=== PATIENT | female | born 1935 | race Caucasian/White ===

== ENCOUNTER 2017-04-24 13:49 | Observation (INO) | payer MEDICARE ==
[2017-04-24] VITALS (8 sets, daily range): BP systolic 109–186; BP diastolic 64–81; PULSE 60–127; RESP 16–18; TEMP 97.4–98.2; O2SAT 96–100
[~2017-04-24] VITALS: Ht 170.2 cm; Wt 53.4 kg
[2017-04-24 14:03] LABS: AUTOMATED NEUTROPHIL # 6.3 TH/MM3 (1.8-7.7); BASOPHIL # 0.1 TH/MM3 (0-0.2); BASOPHIL % 0.9 % (0.0-2.0); EOSINOPHIL % 0.4 % (0.0-4.0); HEMATOCRIT 45.1 % (35.0-46.0); HEMOGLOBIN 15.1 GM/DL (11.6-15.3); LYMPH % 21.5 % (9.0-44.0); MEAN CELL VOLUME 86.7 FL (80.0-100.0); MEAN CORPUSCULAR HEMOGLOBIN 28.9 PG (27.0-34.0); MEAN CORPUSCULAR HGB CONC 33.4 % (32.0-36.0); MONO % 8.1 % (0.0-8.0); MONOCYTE # 0.7 TH/MM3 (0-0.9); NEUT % 69.1 % (16.0-70.0); PLATELET COUNT 215 TH/MM3 (150-450); RED BLOOD COUNT 5.21 MIL/MM3 (4.00-5.30); RED CELL DISTRIBUTION WIDTH 12.8 % (11.6-17.2); WHITE BLOOD COUNT 9.1 TH/MM3 (4.0-11.0)
--- NOTE | 2017-04-24 14:06 | PD ---
HPI Chief Complaint: PALPITATIONS Time Seen by Provider: 13:52 Travel History International Travel<30 days: No Contact w/Intl Traveler<30days: No Traveled to known affect area: No History of Present Illness HPI C/O HEART RACING (HAS HAD THESE ISSUES IN PAST, WHICH IS WHY SHE HAS WORN A HOLTER MONITOR, UNFORTUNATELY NO SYMPTOMS DURING THAT TIME)...PATIENT DID NOT C/ O SOB NOR ANY CHEST PAIN OR LIGHTHEADEDNESS. NO AGGRAVATING/ALLEVIATING FACTORS. PATIENT DENIES ASSOC FACTORS SUCH BARAJAS/N/V/D/CP/ABD PAIN/BACK PAIN/ SOB/POUNDING SENSATION/FEELING LIKE SHE WAS GOING TO PASS OUT. 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 WHO IS TRYING TO FIGURE OUT WHAT THESE "PALPITATIONS ARE" PFSH Social History Tobacco Use: No Allergies-Medications (Allergen,Severity, Reaction): Coded Allergies: No Known Allergies (Unverified , 04/24/17) Reported Meds & Prescriptions Reported Meds & Active Scripts Active Reported Temazepam 7.5 Mg Cap 7.5 Mg PO HS PRN Aspirin 325 Mg Tab 325 Mg PO DAILY Metoprolol Tartrate 25 Mg Tab 12.5 Mg PO BID Review of Systems Except as stated in HPI: all other systems reviewed are Neg General / Constitutional: No: Fever Eyes: No: Visual changes HENT: No: Headaches Cardiovascular: Positive: Palpitations Respiratory: No: Shortness of Breath Gastrointestinal: No: Abdominal Pain Genitourinary: No: Dysuria Musculoskeletal: No: Pain Skin: No Rash Neurologic: No: Weakness Psychiatric: No: Depression Endocrine: No: Polydipsia Hematologic/Lymphatic: No: Easy Bruising Physical Exam Narrative GENERAL: SKIN: Warm and dry. HEAD: Atraumatic. Normocephalic. EYES: Pupils equal and round. No scleral icterus. No injection or drainage. ENT: No nasal bleeding or discharge. Mucous membranes pink and moist. NECK: Trachea midline. No JVD. CARDIOVASCULAR: TACHYCARDIC RATE, IRREGULAR RHYTHM. RESPIRATORY: No accessory muscle use. Clear to auscultation. Breath sounds equal bilaterally. GASTROINTESTINAL: Abdomen soft, non-tender, nondistended. Hepatic and splenic margins not palpable. MUSCULOSKELETAL: Extremities without clubbing, cyanosis, or edema. No obvious deformities. NEUROLOGICAL: Awake and alert. No obvious cranial nerve deficits. Motor grossly within normal limits. Five out of 5 muscle strength in the arms and legs. Normal speech. PSYCHIATRIC: Appropriate mood and affect; insight and judgment normal. Data Data Last Documented VS Vital Signs Date Time Temp Pulse Resp B/P (MAP) Pulse Ox O2 Delivery O2 Flow Rate FiO2 04/24/17 15:07 64 18 122/71 (88) 100 Room Air 04/24/17 14:02 2.00 04/24/17 13:58 97.4 Orders Orders Electrocardiogram (04/24/17 13:52) B-Type Natriuretic Peptide (04/24/17 13:52) Ckmb (Isoenzyme) Profile (04/24/17 13:52) Complete Blood Count With Diff (04/24/17 13:52) Comprehensive Metabolic Panel (04/24/17 13:52) Prothrombin Time / Inr (Pt) (04/24/17 13:52) Act Partial Throm Time (Ptt) (04/24/17 13:52) Troponin I (04/24/17 13:52) Lipase (04/24/17 13:52) Chest, Single Ap (04/24/17 13:52) Ecg Monitoring (04/24/17 13:52) Bilateral Bp Monitoring (04/24/17 13:52) Iv Access Insert/Monitor (04/24/17 13:52) Oximetry (04/24/17 13:52) Oxygen Administration (04/24/17 13:52) Diltiazem Inj (Cardizem Inj) (04/24/17 14:15) Sodium Chlorid 0.9% 500 Ml Inj (Ns 500 M (04/24/17 14:15) Thyroid Stimulating Hormone (04/24/17 14:00) CKMB (04/24/17 14:00) CKMB% (04/24/17 14:00) Admit Order (Ed Use Only) (04/24/17 15:31) Enoxaparin Inj (Lovenox Inj) (04/24/17 16:00) Labs Laboratory Tests Test 04/24/17 14:00 White Blood Count 9.1 TH/MM3 Red Blood Count 5.21 MIL/MM3 Hemoglobin 15.1 GM/DL Hematocrit 45.1 % Mean Corpuscular Volume 86.7 FL Mean Corpuscular Hemoglobin 28.9 PG Mean Corpuscular Hemoglobin Concent 33.4 % Red Cell Distribution Width 12.8 % Platelet Count 215 TH/MM3 Mean Platelet Volume 8.0 FL Neutrophils (%) (Auto) 69.1 % Lymphocytes (%) (Auto) 21.5 % Monocytes (%) (Auto) 8.1 % Eosinophils (%) (Auto) 0.4 % Basophils (%) (Auto) 0.9 % Neutrophils # (Auto) 6.3 TH/MM3 Lymphocytes # (Auto) 2.0 TH/MM3 Monocytes # (Auto) 0.7 TH/MM3 Eosinophils # (Auto) 0.0 TH/MM3 Basophils # (Auto) 0.1 TH/MM3 CBC Comment DIFF FINAL Differential Comment Prothrombin Time 10.5 SEC Prothromb Time International Ratio 1.0 RATIO Activated Partial Thromboplast Time 25.8 SEC Blood Urea Nitrogen 23 MG/DL Creatinine 1.20 MG/DL Random Glucose 103 MG/DL Total Protein 8.0 GM/DL Albumin 3.8 GM/DL Calcium Level 9.0 MG/DL Alkaline Phosphatase 71 U/L Aspartate Amino Transf (AST/SGOT) 49 U/L Alanine Aminotransferase (ALT/SGPT) 29 U/L Total Bilirubin 0.4 MG/DL Sodium Level 133 MEQ/L Potassium Level 5.1 MEQ/L Chloride Level 99 MEQ/L Carbon Dioxide Level 23.2 MEQ/L Anion Gap 11 MEQ/L Estimat Glomerular Filtration Rate 43 ML/MIN Total Creatine Kinase 171 U/L Creatine Kinase MB 2.8 NG/ML Troponin I 0.09 NG/ML B-Type Natriuretic Peptide 715 PG/ML Lipase 278 U/L Thyroid Stimulating Hormone 3rd Gen 1.040 uIU/ML MDM Medical Decision Making Medical Screen Exam Complete: Yes Emergency Medical Condition: Yes Medical Record Reviewed: Yes Interpretation(s) AFIB WITH RVR, NO STEMI PATTERN Differential Diagnosis NEW ONSET AFIB RVR V NONSTEMI V STEMI V NEW ONSET CHF Narrative Course ELEVATED TROPONIN .09 WITH MILD ELEVATION OF CREATININE WELL....CXR SHOWS CARDIOMEGALY AND SOME PULM EDEMA ALONG WITH ELEV OF BNP IN 700'S SUSPICIOUS FOR CHF WHICH WOULD BE A NEW ONSET DIAGNOSIS Critical Care Narrative CRITICAL CARE NOTE: With evaluation of the patient, labs, EKG, receipt of radiologic studies, administration of medications, reevaluation the patient and discussion of the patient with the admitting physicians, the total critical care time was [45] minutes. Time to perform other separately billable procedures was not included in the critical care time. Physician Communication Physician Communication DISCUSSED CARE WITH DR HOLLEY FOR ADMISSION AND PLACED CONSULTATION WITH DR PASTRANA Diagnosis Primary Impression: New onset atrial fibrillation Additional Impressions: New onset of congestive heart failure Elevated troponin Admitting Information Admitting Physician Requests: Observation Matty Menon MD Apr 24, 2017 14:06
[2017-04-24] MEDS ORDERED: METO25TA3 PO (14:07)
[2017-04-24] MEDS ORDERED: ASPI-183 PO (14:07)
[2017-04-24] MEDS ORDERED: TEMA7.5C PO (14:08)
[2017-04-24] MEDS ORDERED: DILTIAZEM HCL 25 MG/5 ML VIAL IV ONE (14:15)
[2017-04-24] MEDS ORDERED: SODIUM CHLORID 0.9% 500 ML INJ 500 ML IV ONE (14:15)
[2017-04-24 14:18] LABS: CHLORIDE 99 MEQ/L (98-107); SODIUM (NA) 133 MEQ/L (136-145)
[2017-04-24 14:22] LABS: ALBUMIN 3.8 GM/DL (3.4-5.0); BICARBONATE 23.2 MEQ/L (21.0-32.0); BLOOD UREA NITROGEN 23 MG/DL (7-18); GLUCOSE,RANDOM 103 MG/DL (74-106); LIPASE 278 U/L (73-393); PROTHROMBIN TIME - PATIENT 10.5 SEC (9.8-11.6)
[2017-04-24 14:25] LABS: ALT (GPT) 29 U/L (10-53); AST (GOT) 49 U/L (15-37); GLOMERULAR FILTRATION RATE 43 ML/MIN (>89)
[2017-04-24 14:26] LABS: TOTAL BILIRUBIN ADULT 0.4 MG/DL (0.2-1.0)
[2017-04-24 14:28] LABS: ALKALINE PHOSPHATASE 71 U/L (45-117)
[2017-04-24 14:30] LABS: TROPONIN I 0.09 NG/ML (0.02-0.05)
--- NOTE | 2017-04-24 14:43 | RADRPT ---
EXAM DATE/TIME: 04/24/2017 14:31 [facility] COMPARISON: No previous studies available for comparison. INDICATIONS : Rapid heart rate, short of breath MEDICAL HISTORY : None. SURGICAL HISTORY : None. ENCOUNTER: Initial ACUITY: 1 week PAIN SCORE: 0/10 LOCATION: Bilateral cranial FINDINGS: A single view of the chest demonstrates the lungs to be symmetrically aerated without evidence of mas s, infiltrate or effusion. There is hyperaeration of both lung hernandez. The heart size is moderately e nlarged.. Osseous structures are intact. CONCLUSION: 1. No acute intrathoracic disease. 2. Moderate compensated cardiomegaly. Martin Meyers MD on April 24, 2017 at 14:40 Board Certified Radiologist. This report was verified electronically.
[2017-04-24] MEDS ORDERED: ENOXAPARIN SODIUM 60 MG/0.6 ML SYRINGE SQ ONE (16:00)
[2017-04-24] MEDS ORDERED: TEMAZEPAM 15 MG CAP PO PRN (18:00)
[2017-04-24] MEDS ORDERED: ACETAMINOPHEN 500 MG CPLT PO PRN (18:00)
[2017-04-24] MEDS ORDERED: SODIUM CHLORIDE 0.9% FLUSH 10 ML FLUSH IV FLUSH PRN (18:00)
--- NOTE | 2017-04-24 18:34 | MH ---
cc: RASHIDA GUPTA M.D. DATE OF ADMISSION 04/24/2017 ADMISSION DIAGNOSIS Atrial fibrillation with rapid ventricular response, elevated troponin. HISTORY OF PRESENT ILLNESS Ms. Marquez is a very pleasant 82-year-old female who has a several year history of intermittent palpitations. She states that over the last several months she had had increase in her palpitations and was being evaluated by her retail and restaurant associate for said palpitations. These have been intermittent and usually resolve after two or three days. The patient states that since last Wednesday she has had the palpitations. These, however, have been persistent. They did not resolve after two or three days they typically do. They have continued until today, again Wednesday an entire week. She says she has not had any chest pain. She has been lightheaded and short of breath when she gets up and we walk across the room. She denies taking any new medications, any decongestants, no [id number] supplements or increasing caffeine. She denies any increased alcohol consumption either that could be perhaps causing these palpitations. She did come to the emergency room where she was found to be in atrial fibrillation with rapid ventricular response. Per the emergency room physician's discussion with me, her heart rate was in the 150s when she presented. She received one dose of Cardizem and then her heart rate came down to the 60s, but she continued in atrial fibrillation. She has been admitted for further evaluation as well since her initial set of troponins came back at 0.09. PAST MEDICAL HISTORY 1. Paroxysmal atrial fibrillation. This was found on a Holter monitor a month ago. She also had evaluation with an echo that showed an ejection fraction of 50-55%, mildly to moderately dilated right atrial size with normal left atrium, mild to moderate MR and moderate TR. In the course of this evaluation, her retail and restaurant associate had wanted a Lexiscan done as well. The patient has been on full dose aspirin since then. 2. History of diverticulosis. 3. Chronic kidney disease III 4. Insomnia. PAST SURGICAL HISTORY Denies ALLERGIES She is not allergic to anything MEDICATIONS At home, 1. Metoprolol 12.5 twice a day 2. Full dose aspirin. HABITS She occasionally has wine or beer. She does not smoke. SOCIAL HISTORY She is . She is a Mu-[employer]. She is independent in activities of daily living. As stated, she is very keen on being able to leave the hospital by Wednesday so she can go on her vacation to [place]. PHYSICAL EXAMINATION VITAL SIGNS: Temperature is 97.8, pulse is 107, respiratory rate 18, blood pressure is 139/73, pulse ox is 96% on room air. GENERAL: This is a very pleasant slender female lying in a hospital bed. She is conversant. She is in no acute distress. HEENT: She is normocephalic atraumatic. EOM intact. She is wearing glasses. She has a moist oral mucosa. She has upper dentures. NECK: Supple. LUNGS: Clear to auscultation. She has no rhonchi, rales or wheezes. HEART: Heart rate today is irregular. At this point, I can hear no murmurs. ABDOMEN: Good bowel sounds in all four quadrants. No rebound or guarding. EXTREMITIES: No clubbing, cyanosis or edema. LABORATORY DATA Lab work that was done when she came in - sodium of 133, potassium 5.1, a BUN of 23, creatinine 1.2, AST was 49, ALT was 29. Her CK was 171 with an MB of 2.8. Her troponin was 0.09. A BNP that was done was 715. Her TSH was 1.04. PT was 10.5, INR was one, PTT was 25.8. IMAGING STUDIES Chest x-ray done showed no acute intrathoracic disease. She had moderate compensated cardiomegaly. CARDIOLOGY STUDIES EKG showed atrial fibrillation with rapid ventricular response. No ST elevation. ASSESSMENT/PLAN An 82-year-old female presenting with atrial fibrillation with rapid ventricular response. At this point, she has been admitted for rate control. Review of her EHR from [facility] reveals that she has occasionally been bradycardic, so we will have to be careful with the agents that we use to control her heart rate and monitor for hypotension. At this point, I have discussed the case with her retail and restaurant associate, Dr. Steel, and he has recommended metoprolol 25 twice a day as well as a Lexiscan tomorrow. Currently we will continue on the Lovenox for anticoagulation. The plan, the procedures and the reasoning behind these were discussed with the patient and her son and they were in agreement. She is very strongly wanting to be able to leave for her trip for [place], but she understands that her health is a priority. She has CKD III and her renal function is a little bit diminished as compared to baseline. I will go ahead and repeat her BMP in the morning. She did receive a bolus of IV fluids in the emergency room. If we have to use another agent for rate control we will have to take her renal function into consideration. Further recommendations as the case develops. MD ALEJO Horvath/ /6:03 PM /6:17 PM
[2017-04-24 18:37] LABS: CALCIUM 8.8 MG/DL (8.5-10.1)
[2017-04-24 18:38] LABS: BICARBONATE 26.1 MEQ/L (21.0-32.0)
[2017-04-24 18:41] LABS: CREATININE 0.96 MG/DL (0.50-1.00)
[2017-04-24 18:45] LABS: TROPONIN I 0.1 NG/ML (0.02-0.05)
[2017-04-24 21:48] LABS: TROPONIN I 0.11 NG/ML (0.02-0.05)
[2017-04-24] MEDS: METOPROLOL TARTRATE 25 MG TAB PO SCH (21:53)
[2017-04-24] MEDS: SODIUM CHLORIDE 0.9% FLUSH 10 ML FLUSH IV FLUSH SCH (21:53)
[2017-04-25] VITALS: BP_SYST 124; BP_SYST 147; BP_DIAS 58; BP_DIAS 62; PULSE 66; RESP 16; TEMP 98.6; O2SAT 98
[2017-04-25 00:38] LABS: TROPONIN I 0.11 NG/ML (0.02-0.05)
[2017-04-25 03:07] LABS: TROPONIN I 0.11 NG/ML (0.02-0.05)
[2017-04-25 04:00] VITALS: BP 147/62; PULSE 66; RESP 16; TEMP 98.6; O2SAT 98
[2017-04-25] MEDS ORDERED: ENOXAPARIN SODIUM 60 MG/0.6 ML SYRINGE SQ SCH (04:00)
[2017-04-25 06:35] LABS: AUTOMATED NEUTROPHIL # 4.2 TH/MM3 (1.8-7.7); BASOPHIL % 0.7 % (0.0-2.0); EOSINOPHIL # 0.1 TH/MM3 (0-0.4); EOSINOPHIL % 1.5 % (0.0-4.0); HEMATOCRIT 39.8 % (35.0-46.0); HEMOGLOBIN 13.2 GM/DL (11.6-15.3); LYMPH % 24.6 % (9.0-44.0); LYMPHOCYTE # 1.6 TH/MM3 (1.0-4.8); MEAN CORPUSCULAR HEMOGLOBIN 28.9 PG (27.0-34.0); MEAN CORPUSCULAR HGB CONC 33.2 % (32.0-36.0); MEAN PLATELET VOLUME 8.6 FL (7.0-11.0); MONOCYTE # 0.7 TH/MM3 (0-0.9); NEUT % 62.2 % (16.0-70.0); PLATELET COUNT 161 TH/MM3 (150-450); RED BLOOD COUNT 4.58 MIL/MM3 (4.00-5.30); RED CELL DISTRIBUTION WIDTH 12.5 % (11.6-17.2); WHITE BLOOD COUNT 6.7 TH/MM3 (4.0-11.0)
[2017-04-25 06:50] LABS: CALCIUM 8.3 MG/DL (8.5-10.1)
[2017-04-25 06:51] LABS: BICARBONATE 26.3 MEQ/L (21.0-32.0)
[2017-04-25 06:54] LABS: CREATININE 0.97 MG/DL (0.50-1.00)
[2017-04-25 08:00] VITALS: BP 168/75; PULSE 64; RESP 18; TEMP 98.4; O2SAT 100
[2017-04-25 08:10] VITALS: PULSE 68
[2017-04-25] MEDS ORDERED: REGADENOSON INJ 0.4 MG/5 ML SYR IV ONE (09:19)
[2017-04-25] MEDS: METOPROLOL TARTRATE 25 MG TAB PO SCH (10:22)
[2017-04-25] MEDS: SODIUM CHLORIDE 0.9% FLUSH 10 ML FLUSH IV FLUSH SCH (10:22)
--- NOTE | 2017-04-25 10:23 | RADRPT ---
EXAM DATE/TIME: 04/25/2017 09:13 [facility] COMPARISON: No previous studies available for comparison. INDICATIONS : Palpitations for two months. Mid chest pressure. Atrial fibrillation. DOSE: 25.9 mCi Tc99m Myoview at stress. 8.6 mCi Tc99m Myoview at rest. 0.4 mg Lexiscan STRESS SYMPTOMS: Shortness of breath. EJECTION FRACTION: 28% MEDICAL HISTORY : Renal failure, chrnoic. SURGICAL HISTORY : None. ENCOUNTER: Initial ACUITY: 2 months PAIN SCALE: 0/10 LOCATION: chest TECHNIQUE: The patient underwent pharmacologic stress with infusion of prescribed dose. Continuous ECG tracing was monitored during stress. Gated SPECT imaging was performed after stress and conventional SPECT i maging was performed at rest. The examination was performed on a SPECT/CT scanner, both attenuation and non-corrected datasets were reviewed. FINDINGS: DISTRIBUTION: The maximum perfused segment at stress is in the anterior wall. PERFUSION STUDY: The pattern of perfusion at stress is within normal limits. GATED STUDY: There is global hypokinesia. CONCLUSION: 1. No stress-induced ischemia seen. 2. Global hypokinesia with a markedly reduced left ventricular ejection fraction. RISK CATEGORY: Intermediate Pedrito Quiroga MD on April 25, 2017 at 10:19 Board Certified Radiologist. This report was verified electronically.
[2017-04-25 11:28] VITALS: O2SAT 98
--- NOTE | 2017-04-25 11:45 | HHI.PR ---
Subjective Remarks Feels well, no real recurrence of palpitations. Objective Vitals Vital Signs Date Time Temp Pulse Resp B/P (MAP) Pulse Ox O2 Delivery O2 Flow Rate FiO2 04/25/17 08:10 68 04/25/17 08:00 98.4 64 18 168/75 (106) 100 04/25/17 04:00 98.6 66 16 147/62 (90) 98 04/25/17 00:00 98.6 66 16 124/58 (80) 98 04/24/17 23:00 60 04/24/17 20:10 98 21 04/24/17 20:00 98.2 100 18 186/78 (114) 98 04/24/17 16:45 97.8 102 18 139/73 (95) 96 04/24/17 16:42 04/24/17 15:07 64 18 122/71 (88) 100 Room Air 04/24/17 14:12 127 122/64 (83) 113/77 (89) 04/24/17 14:02 100 Nasal Cannula 2.00 04/24/17 14:02 100 Nasal Cannula 2.00 04/24/17 13:58 97.4 125 16 109/81 (90) 100 Result Diagram: 04/25/17 0543 04/25/17 0543 Other Results Last Impressions Myocardial Perfusion Scan Nuc Med 04/25/17 0000 Signed Impressions: Service Date/Time: Tuesday, April 25, 2017 09:13 - CONCLUSION: 1. No stress-induced ischemia seen. 2. Global hypokinesia with a markedly reduced left ventricular ejection fraction. RISK CATEGORY: Intermediate Pedrito Quiroga MD Chest X-Ray 04/24/17 1352 Signed Impressions: Service Date/Time: Monday, April 24, 2017 14:31 - CONCLUSION: 1. No acute intrathoracic disease. 2. Moderate compensated cardiomegaly. Martin Meyers MD Objective Remarks Sitting in Bed , no acute distress, relaxed heart RRR lungs cta john good bs no edema A/P Problem List: (1) New onset atrial fibrillation ICD Codes: I48.91 - Unspecified atrial fibrillation Status: Acute Plan: Patients rate controlled with cardizem then converted to sinus rhythm shortly after getting to the floor yesterday. Case was discussed with her sales incentive analyst Dr Steel who recommended her beta mohsen be increased to 25 twice a day and she continue anticoagulation with lovenox. She has remained in sinus and has tolerated the increase in beta mohsen w/o significant bradycardia or hypotension. He recommended she be discharged on the increased dose and a full dose aspirin for now. (2) Elevated troponin ICD Codes: R74.8 - Abnormal levels of other serum enzymes Status: Acute Plan: mild elevation of troponin, Lexiscan done . Results discussed with Dr Steel who reviewed the test. No indication for further cardiac intervention base on the lexiscan. Elevation of the troponin was felt to be demand mediated due to the atrial fibrillation. Discharge Planning Discharge home today on increased dose of beta mohsen and full aspirin. She is to avoid stimulants , decongestants, Caffeine and alcohol. Dr Steel recommended that should she start experiencing increased palpitations again she take 12.5 mg of the metoprolol. She is to follow up with him when she returns from her trip. All this was discussed with the patient prior to discharge. Analia Doyle MD Apr 25, 2017 11:45
[2017-04-25] MEDS ORDERED: METO25TA3 PO ×2 (11:59)
[2017-04-25 12:00] VITALS: BP 155/71; PULSE 56; RESP 18; TEMP 96.9; O2SAT 98
--- NOTE | 2017-04-25 12:34 | EKG ---
Date Performed: 04/24/2017 Time Performed: 13:57:01 PTAGE: 82 years EKG: ATRIAL FIBRILLATION WITH RAPID VENTRICULAR RESPONSE INDETERMINATE AXIS POSSIBLE RIGHT VENTR ICULAR CONDUCTION DELAY ABNORMAL RHYTHM ECG NO PREVIOUS TRACING DOCTOR: Denis Stout Interpretating Date/Time 04/25/2017 12:33:46
--- NOTE | 2017-04-25 12:35 | EKG ---
Date Performed: 04/24/2017 Time Performed: 18:11:11 PTAGE: 82 years EKG: SINUS TACHYCARDIA MARKED LEFT AXIS DEVIATION POSSIBLE RIGHT VENTRICULAR CONDUCTION DELAY ST ELEVATION, PROBABLY EARLY REPOLARIZATION ABNORMAL ECG Compared to PREVIOUS TRACING , there is a rhythm change from atrial fibrillation to what appears to b e sinus tachycardia with a rare PAC. PREVIOUS TRACIN04/24/2017 13.57 DOCTOR: Denis Stout Interpretating Date/Time 04/25/2017 12:34:40
--- NOTE | 2017-04-25 12:37 | EKG ---
Date Performed: 04/25/2017 Time Performed: 05:29:20 PTAGE: 82 years EKG: Sinus rhythm WITH OCCASIONAL SUPRAVENTRICULAR PREMATURE COMPLEXES POSSIBLE LEFT ATRIAL ENLARGEMENT POSSIBLE RIGHT VENTRICULAR CONDUCTION DELAY BORDERLINE ECG Compared to PREVIOUS TRACING , rhythm has changed from atrial fibrillation to sinus rhythm with PACs. PREVIOUS TRACIN04/24/2017 21.11 DOCTOR: Denis Stout Interpretating Date/Time 04/25/2017 12:37:02
--- NOTE | 2017-04-25 12:37 | EKG ---
Date Performed: 04/24/2017 Time Performed: 21:11:30 PTAGE: 82 years EKG: ATRIAL FIBRILLATION WITH RAPID VENTRICULAR RESPONSE POSSIBLE RIGHT VENTRICULAR CONDUCTION D ELAY ABNORMAL RHYTHM ECG Compared to PREVIOUS TRACING , it appears the patient has gone from sinus tachycardia back to atrial fibrillation as the rhythm is more irregular and it is difficult to determine regular P-waves. First tracing clearly showed atrial fibrillation. Clinical correlation and follow tracings recommended. PRE VIOUS TRACIN04/24/2017 18.11 DOCTOR: Denis Stout Interpretating Date/Time 04/25/2017 12:36:19
== END 2017-04-25 13:21 | disposition home or self-care (01) ==
LOC: PHED 13:49 → PHEDA 15:36 → PH3A 16:31
PROVIDERS: ADMIT Legal Medicine; ATTEND Legal Medicine
DX: I48.0 Paroxysmal atrial fibrillation (principal); I51.7 Cardiomegaly; N18.3 Chronic kidney disease, stage 3 (moderate); R00.1 Bradycardia, unspecified; R00.2 Palpitations; R74.8 Abnormal levels of other serum enzymes; Z79.899 Other long term (current) drug therapy; Z79.82 Long term (current) use of aspirin
CPT/HCPCS: 71010; 78452; 80048; 80053; 82550; 82552; 83690; 83735; 83880; 84443; 84484; 85025; 85610; 85730; 93005; 93017; 96361; 96372; 96374; 99291; A9502; G0378; J1650; J2785; J7040

== ENCOUNTER 2017-09-24 14:19 | Inpatient (IN) | payer MEDICARE ==
[2017-09-24 15:20] LABS: AUTOMATED NEUTROPHIL # 7.7 TH/MM3 (1.8-7.7); BASOPHIL % 0.2 % (0.0-2.0); EOSINOPHIL % 0.4 % (0.0-4.0); HEMATOCRIT 42.3 % (35.0-46.0); HEMOGLOBIN 13.9 GM/DL (11.6-15.3); LYMPH % 18.1 % (9.0-44.0); LYMPHOCYTE # 1.9 TH/MM3 (1.0-4.8); MEAN CELL VOLUME 87.8 FL (80.0-100.0); MEAN CORPUSCULAR HEMOGLOBIN 28.7 PG (27.0-34.0); MEAN CORPUSCULAR HGB CONC 32.7 % (32.0-36.0); MEAN PLATELET VOLUME 9.3 FL (7.0-11.0); MONO % 8.7 % (0.0-8.0); MONOCYTE # 0.9 TH/MM3 (0-0.9); NEUT % 72.6 % (16.0-70.0); PLATELET COUNT 181 TH/MM3 (150-450); RED BLOOD COUNT 4.82 MIL/MM3 (4.00-5.30); RED CELL DISTRIBUTION WIDTH 14.2 % (11.6-17.2); WHITE BLOOD COUNT 10.5 TH/MM3 (4.0-11.0)
[2017-09-24 15:21] LABS: HEMO FLAGS DIFF FINAL
[2017-09-24] MEDS: METOPROLOL TARTRATE 5 MG/5 ML VIAL IV PUSH (15:24)
[2017-09-24] MEDS: FUROSEMIDE 40 MG/4 ML VIAL IVP (15:25)
[2017-09-24 15:38] LABS: CHLORIDE 106 MEQ/L (98-107); POTASSIUM 4.2 MEQ/L (3.5-5.1); SODIUM (NA) 138 MEQ/L (136-145)
[2017-09-24 15:40] LABS: CALCIUM 8.6 MG/DL (8.5-10.1)
[2017-09-24 15:41] LABS: ANION GAP 5 MEQ/L (5-15); BICARBONATE 26.8 MEQ/L (21.0-32.0); BLOOD UREA NITROGEN 30 MG/DL (7-18); GLUCOSE,RANDOM 142 MG/DL (74-106)
[2017-09-24 15:44] LABS: GLOMERULAR FILTRATION RATE 39 ML/MIN (>89)
[2017-09-24 15:48] LABS: TROPONIN I 0.21 NG/ML (0.02-0.05)
[2017-09-24] MEDS ORDERED: DILTIAZEM HCL 25 MG/5 ML VIAL IV (16:15)
[2017-09-24] MEDS: DILTIAZEM HCL 50 MG/10 ML VIAL IV (16:24)
[2017-09-24 16:26] LABS: INTERNATIONAL NORMALIZED RATIO 3.4 RATIO; PROTHROMBIN TIME - PATIENT 34.7 SEC (9.8-11.6)
[2017-09-24] MEDS: SODIUM CHLORIDE 0.9% FLUSH 10 ML FLUSH IVF (16:26)
[2017-09-24] MEDS: DILTIAZEM-CD 240 MG CAP ER PO (17:05)
[2017-09-24 17:15] LABS: B-TYPE NATRIURETIC PEPTIDE 1880 PG/ML (0-100)
[2017-09-24] MEDS ORDERED: NITROGLYCERIN 0.4 MG SL 25 TABS/BTL SL (17:15)
[2017-09-24] MEDS ORDERED: SODIUM CHLORIDE 0.9% FLUSH 10 ML FLUSH IV FLUSH (17:15)
[2017-09-24] MEDS: SODIUM CHLORIDE 0.9% FLUSH 10 ML FLUSH IV FLUSH (21:00)
[2017-09-24 23:45] LABS: TROPONIN I 0.21 NG/ML (0.02-0.05)
[2017-09-24 23:47] LABS: CREATINE KINASE 97 U/L (26-192)
[2017-09-25 07:39] LABS: INTERNATIONAL NORMALIZED RATIO 3.4 RATIO; PROTHROMBIN TIME - PATIENT 34.2 SEC (9.8-11.6)
[2017-09-25 07:45] LABS: CHOLESTEROL 167 MG/DL (120-200); TRIGLYCERIDES 91 MG/DL (42-150)
[2017-09-25 07:48] LABS: TROPONIN I 0.22 NG/ML (0.02-0.05)
[2017-09-25 07:48] LABS: CREATINE KINASE 101 U/L (26-192)
[2017-09-25 07:53] LABS: CHOLESTEROL/ HDL RATIO 2.81 RATIO; FREE T4 1.33 NG/DL (0.76-1.46); HDL CHOLESTEROL 59.4 MG/DL (40.0-60.0); LDL CHOLESTEROL 89 MG/DL (0-99)
[2017-09-25 09:05] LABS: B-TYPE NATRIURETIC PEPTIDE 984 PG/ML (0-100)
[2017-09-25] MEDS: DILTIAZEM-CD 240 MG CAP ER PO (09:41)
[2017-09-25] MEDS: FUROSEMIDE 40 MG TAB PO (09:42)
[2017-09-25] MEDS: SODIUM CHLORIDE 0.9% FLUSH 10 ML FLUSH IV FLUSH (09:42)
[2017-09-25] MEDS: POTASSIUM CHLORIDE 20 MEQ CONTROLLED RELEASE TAB PO (15:09)
[2017-09-25] MEDS: FUROSEMIDE 40 MG/4 ML VIAL IV PUSH (15:10)
== END 2017-09-25 20:03 | disposition home or self-care (01) | DRG 308 ==
LOC: PHEFT 14:19 → PHEDA 16:54 → HCIS 20:24
DX: I48.91 Unspecified atrial fibrillation (principal); I50.21 Acute systolic (congestive) heart failure; N18.3 Chronic kidney disease, stage 3 (moderate); I42.9 Cardiomyopathy, unspecified; I13.0 Hypertensive heart and chronic kidney disease with heart failure and stage 1 through stage 4 chronic kidney disease, or unspecified chronic kidney disease; G25.81 Restless legs syndrome; M85.80 Other specified disorders of bone density and structure, unspecified site; K57.90 Diverticulosis of intestine, part unspecified, without perforation or abscess without bleeding; Z79.01 Long term (current) use of anticoagulants
CPT/HCPCS: 71045; 71046; 80048; 80061; 82550; 83880; 84439; 84443; 84484; 85025; 85610; 93005; 93306; 96374; 96375; 97161-GP; 99291-25